=== PATIENT | male | born 1945 | race Caucasian/White ===

== ENCOUNTER 2024-03-28 10:05 | Observation (INO) ==
--- NOTE | 2024-02-29 10:33 | PAT Medication Instructions ---
Medication Instructions Date of Service February 29, 2024 Home Medications Medication Instructions Recorded walker #1 ea 02/16/24 ascorbic acid (vitamin C) 500 mg tablet (Vitamin C) 500 mg PO QAM aspirin 81 mg capsule 81 mg PO QAM cholecalciferol (vitamin D3) 25 mcg (1,000 unit) tablet (Vitamin D3) 25 mcg PO QAM fenofibrate micronized 134 mg capsule 134 mg PO QPM multivitamin 1 tab PO QAM vitamin E (dl, acetate) 180 mg (400 unit) capsule 180 mg PO QAM zinc 50 mg tablet 50 mg PO QAM ASK your prescriber and surgeon aspirin 81 mg capsule 81 mg PO QAM STOP taking 2 weeks before surgery (or as soon as possible if surgery is within 2 weeks) vitamin E (dl, acetate) 180 mg (400 unit) capsule 180 mg PO QAM STOP taking 48 hours before surgery fenofibrate micronized 134 mg capsule 134 mg PO QPM DO NOT take the morning of surgery ascorbic acid (vitamin C) 500 mg tablet (Vitamin C) 500 mg PO QAM cholecalciferol (vitamin D3) 25 mcg (1,000 unit) tablet (Vitamin D3) 25 mcg PO QAM multivitamin 1 tab PO QAM zinc 50 mg tablet 50 mg PO QAM Other Notes NOTHING TO EAT OR DRINK AFTER MIDNIGHT. If you have any questions please call us at [phone] or [phone] or [phone] or [phone]
--- NOTE | 2024-03-07 08:33 | Anesthesiology Consultation ---
Date of Service March 07, 2024 Assessment & Plan (1) Encounter for pre-operative examination: - will request CBC with diff, EKG and most recent PCP office note from PCP office, Dr. Alonso. - Outpatient joint assessment: Patient is currently scheduled for inpatient pathway. If re-evaluated and patient/surgeon requests outpatient pathway, patient is not ideal candidate for outpatient joint program from anesthesia standpoint. Chart Review Chart Review: Pending: Refer to Additional Notes / Consult section and Patient seen in Pre Admission Testing Teaching & Discussion Pre-Anesthesia Teaching/Discussion Notes: Instructed NPO after midnight before surgery, except medications with 15 cc of water. Medication instructions provided according to the PAT guidelines. History Surgery Operation Date: 03/28/24 12:30 Proposed Procedures p Left Total Knee Arthroplasty - Prabhjot Mane MD Height/Weight Height: 5 ft 8 in Weight: 70.7 kg Allergies Allergy/AdvReac Type Severity Reaction Status Date / Time No Known Allergies Allergy Verified 02/25/24 07:56 Medications Home Medications Medication Instructions Recorded Confirmed Last Taken walker #1 ea 02/16/24 Unknown ascorbic acid (vitamin C) 500 mg 500 mg PO QAM 02/25/24 02/25/24 Unknown tablet (Vitamin C) aspirin 81 mg capsule 81 mg PO QAM 02/25/24 02/25/24 Unknown cholecalciferol (vitamin D3) 25 25 mcg PO QAM 02/25/24 02/25/24 Unknown mcg (1,000 unit) tablet (Vitamin D3) fenofibrate micronized 134 mg 134 mg PO QPM 02/25/24 02/25/24 Unknown capsule multivitamin 1 tab PO QAM 02/25/24 02/25/24 Unknown vitamin E (dl, acetate) 180 mg 180 mg PO QAM 02/25/24 02/25/24 Unknown (400 unit) capsule zinc 50 mg tablet 50 mg PO QAM 02/25/24 02/25/24 Unknown Past Medical History Medical History CAD (coronary artery disease) Hx of myocardial infarction 04/2011 - heart catherization - no stents - [facility] - Discharged from cardiology - Follows PCP Patient denies h/o stroke, seizures, heart failure, DM, HTN, blood clots/DVTs or blood transfusions. Exercise / Class Metabolic Activity II 4-5 Yardwork/Stairs/Walk up hill (denies chest discomfort or shortness of breath with one flight of stairs) Past Surgical History Surgical History Hx of arthroscopy of left knee 2003 Hx of cardiac catheterization 04/[address] [facility] Hx of cataract surgery Bilateral Past Anesthesia History No Hx of Anesthesia Complications and No Family Hx of Anesthesia Complications History of PONV No Hx of PONV and No Hx of Motion Sickness Social History Smoking Status: Never smoker Do You Dip or Chew Tobacco: No Hx Alcohol Use: Yes Alcohol type: beer alcohol intake frequency: a few times a month Hx Substance Use: No substance use type: does not use Review of Systems Snoring, denies witnessed apneas. Patient denies chest pain, shortness of breath, dyspnea on exertion, reflux, fever, chills, cough, wheezing, or palpitations. Physical Exam Vital Signs Vitals BP 147/73 P 63 TEMP 97.9 SP02 97% on RA RESP 17 Physical Patient resting comfortably in chair in no acute distress, alert and oriented, responding appropriately throughout visit Full cervical extension range of motion without pain TMD 3.5 finger breadths Mallampati Score 2 Dentition: one removable bridge and one chipped tooth, denies loose teeth, caps/crowns, or implants Lungs: normal respiratory effort. Good air movement, clear throughout to auscultation, no adventitious breath sounds Cardiac: regular rate and rhythm, no murmurs noted Carotid arteries: negative bruit bilat Lab Results Anesthesia Preop Results Results Anesthesia Widget: PT 11.0 Seconds (9.0-12.0) 03/07/24 PTT 24 Seconds (21-31) 03/07/24 INR 1.0 (0.9-1.1) 03/07/24 Blood Type A Positive 03/07/24 Antibody Screen NEGATIVE 03/07/24 Testing Laboratory Results 03/03/24 WBC: H/H: PLATELETS: SODIUM: 139 POTASSIUM: 3.8 CHLORIDE: 103 CO2: 27 BUN: 24 CREATININE: 1 GLUCOSE: 121 AST: 24 ALT: 21 Alk phos: 27 Chest X-Ray Date: 03/07/24 No acute chest disease.
--- NOTE | 2024-03-25 08:46 | History & Physical Report ---
Date of Service March 25, 2024 Assessment & Plan (1) Left knee DJD: 78-year-old gentleman DJD. He is failed conservative measures. Is affecting his quality life need that like to have his left knee replaced.. He has been seen by his primary care. He has been cleared for surgery. Will plan on DVT prophylaxis including thigh-high teds, SCDs, baby aspirin twice a day. He is planned to be discharged to home using [facility] home health program. (2) CAD (coronary artery disease): (3) Hx of myocardial infarction: (4) Hx of arthroscopy of left knee: History of Present Illness Chief Complaint: . Left knee pain. Primary Care Provider: NO PCP . The patient is a 78-year-old gentleman from [facility] who presents for surgical treatment of his left knee. He has a long history of left knee pain discomfort that is gradually gotten worse over time. He does have a history of a knee arthroscopy done by Dr. Tsang about 20 years ago. Over the past 3 to 5 years he developed increased pain discomfort in his knee. Pain is mostly medial but some global pain. He has developed stiffness. Days tried multiple different interventions without significant relief. He would like to have his left knee replaced. Of note, the patient has a history of an SC back in 2010 but no residual symptoms and cleared for surgery. Allergies Allergy/AdvReac Type Severity Reaction Status Date / Time No Known Allergies Allergy Verified 02/25/24 07:56 Home Medications Medication Instructions Recorded Confirmed Type walker #1 ea 02/16/24 Rx ascorbic acid (vitamin C) 500 mg 500 mg PO QAM 02/25/24 02/25/24 History tablet (Vitamin C) aspirin 81 mg capsule 81 mg PO QAM 02/25/24 02/25/24 History cholecalciferol (vitamin D3) 25 25 mcg PO QAM 02/25/24 02/25/24 History mcg (1,000 unit) tablet (Vitamin D3) fenofibrate micronized 134 mg 134 mg PO QPM 02/25/24 02/25/24 History capsule multivitamin 1 tab PO QAM 02/25/24 02/25/24 History vitamin E (dl, acetate) 180 mg 180 mg PO QAM 02/25/24 02/25/24 History (400 unit) capsule zinc 50 mg tablet 50 mg PO QAM 02/25/24 02/25/24 History Past Med/Surg History Problem List Encounter for pre-operative examination Left knee DJD Medical History CAD (coronary artery disease) Hx of myocardial infarction 04/2011 - heart catherization - no stents - [facility] - Discharged from cardiology - Follows PCP Surgical History Hx of arthroscopy of left knee 2003 Hx of cataract surgery Bilateral Hx of cardiac catheterization 04/2011 No stents - [facility] Social History Smoking Status: Never smoker Second Hand Exposure: No; Do You Dip or Chew Tobacco: No; Hx Alcohol Use: Yes Alcohol type: beer Hx Substance Use: No Preferred Language: Mohawk Communication Ability: Effective Advertising Sales Consultant Required: No Beliefs That Will Affect Care: None Current Living Situation: Spouse Feels Safe at Home: Yes Assistive Devices: Other Review of Systems All systems reviewed & are unremarkable except as noted in HPI & below. Physical Exam . Physical examination was a pleasant and healthy-appearing male. Looks to be in excellent health. Examination of the left knee reveals patient ambulates independently. He is got varus alignment to his knee. Is got bony hypertrophy medially. He has about a 10 degree flexion contracture and bends to 120. No particular pain with hip motion. He is neurovascularly intact. Constitutional WD/WN, vitals as above Respiratory normal respiratory effort, lungs clear to auscultation Cardiovascular RRR, no murmur, no edema Gastrointestinal (Abdomen) normal bowel sounds, soft, nontender, no hepatosplenomegaly Results & Data Results & Data Laboratory Results . Diagnostic Findings . X-rays of the left knee were reviewed. That shows significant tricompartment disease. He is got complete loss of his medial joint space. He is got chondrocalcinosis. PG Care Time/CCT Total # of Minutes Spent Total Time Spent with Patient: Total time spent is greater than 50% in coordination of care (as documented) at patient's floor/unit and/or counseling patient: Coding Level of Care Code None Diagnoses Left knee DJD M17.12 CAD (coronary artery disease) I25.10 Hx of myocardial infarction I25.2 Hx of arthroscopy of left knee Z98.890
[~2024-03-28 10:05] MED LIST: ROPIVACAINE 0.5% 5 MG/ML 30 ML VIAL ONE
--- NOTE | 2024-03-28 10:19 | History & Physical Bridge Note ---
Date of Service March 28, 2024 History & Physical Bridge Note I have examined the patient, reviewed the History & Physical and in the interval since the performance of the History & Physical I have noted the following changes of clinical significance: no changes noted
[2024-03-28] MEDS: ACETAMINOPHEN 500 MG TAB PO SCH ×2 (10:45→21:29)
[2024-03-28] MEDS: LR 500ML BOLUS, THEN 15ML/HR IV SCH (10:45)
[2024-03-28] MEDS: CeleBREX 200 MG CAP PO SCH (10:46)
[2024-03-28] MEDS: LR 60ML/HR IV SCH (10:46)
[2024-03-28] MEDS: FAMOTIDINE 20 MG TAB PO SCH (10:46)
[2024-03-28] MEDS: dexAMETHasone**PF** 10 MG/ML VIAL IV SCH (10:46)
[2024-03-28] MEDS: METOCLOPRAMIDE HCL 10 MG TABLET PO SCH (10:46)
[2024-03-28] MEDS ORDERED: fentaNYL citrate PF 100 MCG/2 ML VIAL ONE (11:34)
[2024-03-28] MEDS ORDERED: PROPOFOL IV EMULSION 10 MG/ML 20 ML VIAL IV ONE (11:34)
[2024-03-28] MEDS ORDERED: MIDAZOLAM HCL 1 MG/ML 2ML VIAL ONE (11:34)
[2024-03-28] MEDS ORDERED: HYDROmorphone INJ 1 MG/ML SYRINGE IV PRN (11:54)
[2024-03-28] MEDS ORDERED: ATROPINE SULFATE 0.1 MG/ML 10ML SYR IV PRN (11:54)
[2024-03-28] MEDS ORDERED: ONDANSETRON INJ 2 MG/ML 2 ML VIAL IV PRN ×2 (11:54→15:03)
[2024-03-28] MEDS ORDERED: fentaNYL citrate PF 100 MCG/2 ML VIAL IV PRN (11:54)
[2024-03-28] MEDS ORDERED: ePHEDrine sulfate 50 MG/ML AMP IV PRN (11:54)
[2024-03-28] MEDS: ceFAZolin 2000MG 2,000 MG/15 ML SYR IV SCH (12:29)
[2024-03-28] MEDS ORDERED: ePHEDrine sulfate 50 MG/5 ML SYR ONE (12:49)
[2024-03-28] MEDS: ORTHO JOINT ANESTHETIC ONE (13:09)
[2024-03-28] MEDS: ROPIV 0.5% 246mg, Ketorolac 30mg, EPINEPHrine 0.5mg in NSS INFIL SCH (13:09)
[2024-03-28] MEDS: TRANEXAMIC ACID 1,000 MG **IV Intra-op IV SCH (13:14)
[2024-03-28] MEDS ORDERED: ONDANSETRON INJ 2 MG/ML 2 ML VIAL ONE (13:43)
--- NOTE | 2024-03-28 14:08 | Operative Report ---
PG Post Operative Report Pre & Post Diagnosis Operation Date: 03/28/24 12:30 Pre-Op Diagnosis: Left Knee Osteoarthritis Post-Op Diagnosis: Left Knee Osteoarthritis I identified the patient and participated in the time-out.: Yes Procedure Operation Date: 03/28/24 12:30 Actual Procedures p Left Total Knee Arthroplasty(Left) - Prabhjot Mane MD Surgeon Prabhjot Mane MD Social Services Counselor MATT Higginbotham Estimated Blood Loss 50 Findings Consistent with Post-Op Diagnosis Operative findings were advanced left knee DJD. He had extensive grade 4 [id number] disease the entire medial compartment. He had a varus deformity to his knee and a slight flexion contracture. He had a chronic ACL deficiency. Specimens Left knee sent for pathology. Anesthesia Type Spinal MAC Complications none Disposition Accompanied Patient To Recovery: No Indications Patient 78-year-old gentleman with a long history of left knee pain discomfort and gradual progressive deformity. He has been through extensive conservative treatment the past which became less successful. X-rays show advanced left knee DJD. He would like proceed with total knee arthroplasty. Description of Procedure Operative implants consist of: 1. Biomet Vanguard size 67.5 left posterior stabilized femoral component. 2. Biomet size 75 tibial tray. 3. 10 mm posterior stabilized polyethylene insert. 4. 34 x 8 and half all poly patella. The patient was taken the op room, identified, placed on the operating table in the supine position. All contact areas were appropriately padded. IV antibiotics right by anesthesia team. A spinal anesthetic and adductor canal block had been provided in the holding area. A left thigh turn was then placed. Left lower extremity was then prepped and draped in usual sterile fashion. The left leg was elevated exsanguinated with use of an Esmarch and turn was placed at 3 mmHg. An anterior approach left knee was then performed to longitudinal incision centered over the patella. Sharp dissection was Through subcutaneous tissue down the extensor mechanism. A medial parapatellar arthrotomy incision was made. Some subperiosteal dissection was carried out medially. The fat pad resected from Neath patella tendon. The lateral patellofemoral ligament was released. Patella subluxated laterally. The knee was flexed. The osteophytes taken off distal femur. His ACL was absent. The PCL was released from the distal femur the tibia subluxated anteriorly. The external tibial alignment jig was then placed on the anterior face the tibia and adjusted 14 mm medially. Proximal tibial cut was made essentially flush with the most deficient aspect of the posterior medial tibial plateau. He had quite a bit of bone wear medially. Some osteophytes taken off medially. The tibia sized to a size 75. Attention drawn the femur. The distal femur examined the sharp drill. Intramedullary canal was suction. A left 6 degree valgus cutting guide was placed. The distal femoral cutting block was pinned in place. Distal femoral cut was made to take an additional 3 mm of bone off distal femur. The femur was then sized to a size 67.5. The AP cutting block was pinned parallel to the epicondylar axis which was 5 degrees of external rotation. The anterior cut, anterior chamfer, posterior cut, posterior chamfer cuts were made. The box cutting guide was placed and just slight lateral box cut was made. The knee was flexed. The remnants of the medial and lateral menisci were excised. The osteophytes taken off the posterior aspect the femur. A trial femoral component was placed. The tibial tray was pinned Adina external rotation and the drill and stem punch used to create defect in proximal tibia for the tibial tray. Knee was then trialed the 10 mm insert fit most appropriately. Attention drawn the patella. The patella was cleaned of all soft tissues. Patella thickness measured 23 mm in thickness was cut down to 15. Was sized to a size 34 patella. The lug holes were drilled for 34 patella. The lateral osteophytes removed. The patella button was placed. Knee was taken through range of motion patella tracked nicely with no thumbs test. Attention drawn to place the permanent components. All trial components were removed. Bone plug was placed into this femur limit blood loss. Double batch Pal[place]os G cement was mixed. A Biomet Vanguard size 67.5 left posterior Byce femoral component, size 75 tibial tray, a 10 mm posterior Byce polyethylene insert, and a 34 x 8 and half all poly patella then cemented in place. The knee was brought out into full extension till cement hardened. Final cement check was then performed. Pericapsular tissues were injected 100 cc of Ortho mix. Patient did receive 1 g tranexamic acid. The estefany rniquet was then let down for final turn time 51 minutes. Hemostasis assured use electrocautery. Extensor Meclomen closed with combination 1 PDS suture Vicryl suture in [id number] fashion. The extensor mechanism checked found to be intact in the subcutaneous tissues then closed with 2 Dexon suture in a buried interrupted fashion skin was closed skin michael. Leg was then cleaned and dried and sterile dressed with Xeroform, 4 fours, sterile cast padding, Zak bandage were applied. Patient then transferred to the recovery in stable condition. Patient tolerated procedure well and there are no complications. Juan Antonio Higginbotham, my physician assistant general manager, was present for the entire procedure. His assistance was essential and required for appropriate patient positioning, prepping and draping, surgical exposure, performing the technical details of the operation, placement the implants, closure of the wound, and placement of the sterile bandage. I attest to the content of the Intraoperative Record and any orders documented therein. Any exceptions are noted below.
--- NOTE | 2024-03-28 15:02 | Anesthesiology Progress Note ---
Date of Service March 28, 2024 Anesthesia Post Procedure Vital Signs Vital Signs: Temp Pulse Pulse Resp BP Pulse Ox O2 Del Method 03/28/24 14:40 37.2 C 87 15 118/60 97 Room Air 03/28/24 14:30 92 H 20 115/59 L 97 Room Air 03/28/24 14:20 87 16 124/65 97 Room Air 03/28/24 14:10 36.4 C L 90 21 103/53 L 99 Oxymask 03/28/24 11:11 36.5 C 72 20 136/83 94 Room Air O2 Flow Rate 03/28/24 14:40 03/28/24 14:30 03/28/24 14:20 03/28/24 14:10 5 03/28/24 11:11 Transfer of Care Handoff Completed per policy Notes Mental Status: alert / awake / arousable and participated in evaluation Nausea / Vomiting: adequately controlled Pain: adequately controlled Airway Patency, RR, SpO2: stable & adequate BP & HR: stable & adequate Hydration State: stable & adequate Anesthetic Complications: no major complications apparent and Pt Satisfied with anesthetic care
[2024-03-28] MEDS ORDERED: HYDROmorphone INJ 0.5 MG/0.5 ML SYR IV PRN (15:03)
[2024-03-28] MEDS ORDERED: NALOXONE HCL 0.4 MG/1 ML VIAL/CARP IV PRN (15:03)
[2024-03-28] MEDS ORDERED: ALUMINUM/MAGNESIUM SUSP 30 ML UDC PO PRN (15:03)
[2024-03-28] MEDS ORDERED: oxyCODONE HCL IR 5 MG TAB (IMMEDIATE RELEASE) PO PRN (15:03)
[2024-03-28] MEDS ORDERED: MAGNESIUM HYDROXIDE SUSP 30 ML UDC PO PRN (15:03)
[2024-03-28] MEDS ORDERED: bisacodyL 10 MG SUPP PR PRN (15:03)
[2024-03-28] MEDS ORDERED: METOCLOPRAMIDE HCL INJ 5 MG/ML 2 ML VIAL IV PRN (15:03)
[2024-03-28] MEDS: SODIUM CHLORIDE 0.9% 1,000 ML IV SCH (15:54)
[2024-03-28] MEDS: KETOROLAC TROMETHAMINE 15 MG/ML VIAL IV SCH (15:55)
--- NOTE | 2024-03-28 16:46 | XRay Report ---
XR knee LT 1 or 2V routine CLINICAL HISTORY: Postoperative evaluation. COMPARISON: Left knee radiographs February 14, 2024. FINDINGS: Alignment of the total left knee arthroplasty is anatomic. There is no periprosthetic frac ture or unexpected radiopaque foreign body. There are skin michael. IMPRESSION: Expected findings following total left knee arthroplasty. ACT 112: Negative or not required by law. Electronically signed by: Sean Sanchez M.D. 03/28/2024 4:44 PM
[2024-03-28] MEDS ORDERED: SENNA 8.6 MG TAB PO SCH (21:00)
[2024-03-28] MEDS: FENOFIBRATE NANOCRYSTALLIZED 145 MG TABLET PO SCH (21:29)
[2024-03-28] MEDS: ASPIRIN 81 MG ECTAB PO SCH (21:29)
[2024-03-28] MEDS: TRANEXAMIC ACID / 0.7% NACL 1,000 MG/100 ML BAG IV SCH (21:30)
[2024-03-28] MEDS: ceFAZolin 1000MG 1,000 MG/7.5 ML SYR IV SCH (21:30)
[2024-03-28] MEDS: DOCUSATE SODIUM 100 MG CAP PO SCH (21:31)
[2024-03-28] MEDS: SENNA 8.6 MG TAB PO SCH (21:31)
[2024-03-29 03:42] VITALS: RESP 16
[2024-03-29 06:11] LABS: Hematocrit (blood only) 34.6 % (42.0-52.0); Hemoglobin 11.9 g/dl (14.0-18.0); Mean Corpuscular Hemoglobin 32.4 pg (25.0-34.0); Mean Corpuscular Hgb Conc 34.4 g/dL (32.0-36.0); Mean Corpuscular Volume 94.3 fL (80.0-100.0); Mean Platelet Volume 10.6 fL (9.4-12.4); Platelet Count 204 K/uL (130-400); RDW Coefficient of Variation 12.5 % (11.5-14.5); RDW Standard Deviation 43.3 fL (36.4-46.3); Red Blood Count 3.67 M/uL (4.70-6.10); White Blood Count 16.45 K/ul (4.8-10.8)
[2024-03-29 06:29] LABS: BUN Creatinine Ratio 19.6 (10-20); Calcium 8.9 mg/dl (8.6-10.3); Creatinine Clr Calc Pharmacy 43.4 ml/min; Est GFR (African American) 56.8 ml/min; Potassium 4.2 mmol/L (3.5-5.1)
--- NOTE | 2024-03-29 06:46 | Orthopedic Progress Note ---
Date of Service March 29, 2024 Assessment & Plan (1) Status post total left knee replacement: Pain controlled PT/OT wbat d/c planning: home with home health today after PT. Dressing change tomorrow dvt prophylaxis: teds, scd's, aspirin Subjective . 78 year old patient POD #1 from left tka. Doing well. No pain. No chest pain or shortness of breath. Has been up walking. Review of Systems All systems reviewed & are unremarkable except as noted in HPI & below. Physical Exam . alert and oriented. NAD VSS hgb 11.9 Left knee: Dressing clean, dry, intact. NVI. Able to do SLR, DF/PF Results & Data Results & Data Laboratory Results . Diagnostic Findings . PG Care Time/CCT Total # of Minutes Spent Total Time Spent with Patient: Total time spent is greater than 50% in coordination of care (as documented) at patient's floor/unit and/or counseling patient: Coding Level of Care Code 44104 Post Operative Follow-Up Diagnoses Status post total left knee replacement Z96.652
[2024-03-29 07:41] VITALS: BP 152/76; PULSE 63; TEMP 98.8; O2SAT 98
[2024-03-29] MEDS: dexAMETHasone 10 MG in SYRINGE 0 ML IV SCH (07:43)
[2024-03-29] MEDS: CHOLECALCIFEROL 25 MCG (1000 UNITS) TAB PO SCH (08:21)
[2024-03-29] MEDS: ASCORBIC ACID 500 MG TAB PO SCH (08:21)
[2024-03-29] MEDS: MULTIVITAMIN TAB PO SCH (08:22)
[2024-03-29] MEDS: ZINC SULFATE 220 MG CAPSULE PO SCH (08:22)
[2024-03-29] MEDS: TAMSULOSIN HCL 0.4 MG CAP PO SCH (08:24)
[2024-03-29] MEDS: TOCOPHERYL, DL-ALPHA 400 UNITS 180 MG CAP PO SCH (08:24)
[2024-03-29] MEDS ORDERED: MULTIVITAMIN TAB PO SCH (09:00)
--- NOTE | 2024-03-31 06:34 | Discharge Summary ---
Date of Service March 31, 2024 Admission HPI (Per Admitting) . The patient is a 78-year-old gentleman from [facility] who presents for surgical treatment of his left knee. He has a long history of left knee pain discomfort that is gradually gotten worse over time. He does have a history of a knee arthroscopy done by Dr. Tsang about 20 years ago. Over the past 3 to 5 years he developed increased pain discomfort in his knee. Pain is mostly medial but some global pain. He has developed stiffness. Days tried multiple different interventions without significant relief. He would like to have his left knee replaced. Of note, the patient has a history of an IN back in 2010 but no residual symptom s and cleared for surgery. Admission Exam (Per Admitting) . Physical examination was a pleasant and healthy-appearing male. Looks to be in excellent health. Examination of the left knee reveals patient ambulates independently. He is got varus alignment to his knee. Is got bony hypertrophy medially. He has about a 10 degree flexion contracture and bends to 120. No particular pain with hip motion. He is neurovascularly intact. Principal Diagnosis Same as "Discharge Diagnosis" noted below under Discharge Instructions. Discharge Exam . alert and oriented. NAD VSS hgb 11.9 Left knee: Dressing clean, dry, intact. NVI. Able to do SLR, DF/PF Discharge Data Procedures Performed Operation Date: 03/28/24 12:30 Actual Procedures p Left Total Knee Arthroplasty(Left) - Prabhjot Mane MD Ordered Studies 03/28/24 05:00 US - OR guided needle placemen Routine Hospital Course (1) Status post total left knee replacement: This is a 78 year old patient admitted on 03/28/24 and underwent total knee arthroplasty. He tolerated the procedure well and there were no complications. Transferred to the PACU post op and later to the orthopedic floor for further care. He was given ancef for antibiotic prophylaxis. He was also given DALLIN stockings, SCDs, and aspirin for DVT prophylaxis. Hemoglobin, hematocrit, and vital signs were monitored during his hospital stay and remained stable. Did not require any blood transfusions. There were no complications during his hospital stay. By post op day #1 the patient was tolerating a regular diet, pain was reasonably controlled with oral pain medicine, and he was participating in physical therapy. On post op day #1 the patient was discharged home and set up with home health care. He was given printed discharge instructions including prescriptions for extra strength tylenol, aspirin, cefadroxil, ketorolac, zofran, oxycodone, senokot, and flomax. Continue physical therapy, weight bearing as tolerated. Continue DALLIN stockings. Follow up approximately 2 weeks post op or sooner if there are problems or concerns. PG Care Time/CCT Total # of Minutes Spent Total Time Spent with Patient: Total time spent is greater than 50% in coordination of care (as documented) at patient's floor/unit and/or counseling patient: Discharge Plan Discharge Items Patient Disposition: Home - Home Health Services Reason For Visit: Left Knee Osteoarthritis Discharge Diagnosis: Left Knee REplacement Activity: Per Instructions section Weightbearing: Full weightbearing Non-emergency contact: Surgeon Call non-emergency contact if: you have any medication questions Follow-up/Referrals: PCP,NO [Physician] - Diet: Regular Addtl Attending Provider Instructions: ACTIVITY RECOMMENDATIONS: Physical Therapy: * You will go to physical therapy three times each week for four to six weeks after your surgery in order to regain your knee range of motion and to retrain your knee to work properly. * It is just as important to make sure you are getting your knee perfectly straight as it is to regain your knee bend. * Taking a pain pill an hour before therapy can help you have a more productive and comfortable therapy session. Home Exercise: * You were shown a series of exercises (heel props, heel slides, etc.) in the hospital. Do these exercises three to four times each day including the exercises you were shown in physical therapy. Walking: * Get up and walk several times each day. For the first four weeks, try not to stand or walk for more than one hour at a time. If you do stand or walk for more than one hour, you will not hurt anything, but your knee and leg will likely swell. * As you feel comfortable, you may change from the walker or crutches to a cane and then to independent walking. MEDICATIONS: New Medicine: * You will likely be taking one or more of these medications: 1. Oxycodone - A quick and shorter-acting pain medication. Take one to two tablets every six hours to lessen your pain. 2. Aspirin - Thins your blood to lessen the chance of forming a blood clot. * The most common side effects of pain medicine and iron are nausea and constipation. If nausea or constipation is too much of a problem or if you have any questions about your new medicines or doses, call [facility] at . We will try to help you manage these issues. "VERY IMPORTANT TO READ AND REVIEW" Pain: * The immediate post-operative period after knee replacement surgery is often quite painful. * You are given a prescription for pain medicine. You should take it, as directed, when you need it, especially before physical therapy and before going to bed. Pain that interferes with sleep is very common and can last several months. * You will likely need pain medicine for the first four to six weeks. It will not stop all of the pain. The pain will lessen and as you feel better, you may change to milder pain medicine such as Tylenol. * The most common side effects of pain medicine are nausea and constipation, so don't take more than you need. SPECIAL CARE INSTRUCTIONS: TEDs/Elastic Stockings: * The white elastic stockings help limit swelling and prevent blood clots from forming in your legs. The more you wear them, the more they work. * Wear them for six weeks after knee replacement surgery and four weeks after partial knee replacement. Incision Site Care: * Remove dressing postoperative day 2 and then shower. Keep direct shower pressure off the incision site. * After showering, cover michael with dry gauze and change daily or more frequently if the dressing is getting saturated with drainage. * Use the DALLIN stockings to hold dressing in place. DO NOT apply tape on the skin. * May completely stop using bandage if wound is dry and no drainage * [place] are removed between 2 and 3 weeks post-op. If your follow-up appointment is made before 2 weeks, please have your appointment re- scheduled. It is too early to remove the michael. Prevention of Infection: * Take antibiotics one hour before any dental cleaning, dental work, urological procedure, gastrointestinal procedure or any invasive surgery in order to prevent your new joint from getting infected. * You may get the antibiotics from the doctor performing the procedure or you may call our office at [phone] before and we will call in a prescription to the pharmacy of your choice. Things to Watch For: * Drainage from the incision site that occurs more than one week after your surgery. * Severely increased knee/leg pain or swelling. * Increased redness at the incision site. * Fever above 102 degrees Fahrenheit. * Unusual chest pain or shortness of breath. * Unusual pain or burning with urination. Call [facility] at [phone] with any of the above problems or if you have any questions about your medicines or recovery. FOLLOW UP VISIT: Make an appointment to see your doctor for approximately two weeks after surgery for a progress check and staple removal by calling the office at [phone]. Pending Studies at Discharge: No Stand-Alone Forms: My [facility] DEONTICS, Smoking Cessation Medications and DC Order Prescriptions: Continued (DME) walker Misc See Rx Instructions .MEDSUPPLY Qty: 1 0RF Rx Instructions: As directed oxycodone 5 mg tablet 5 - 10 mg PO Q6 PRN (Reason: pain) Qty: 40 0RF Rx Instructions: Take as needed for pain ondansetron 4 mg tablet,disintegrating 4 mg PO Q8 PRN (Reason: nausea) Qty: 20 1RF Rx Instructions: Take as needed for nausea ketorolac 10 mg tablet 10 mg PO TID 5 Days Qty: 15 0RF Rx Instructions: Take 3 times per day with food for 5 days to lessen pain and swelling. sennosides [Senokot] 8.6 mg tablet 8.6 mg PO BID 14 Days Qty: 28 0RF Rx Instructions: Take two times a day to prevent/treat constipation acetaminophen [Tylenol Extra Strength] 500 mg tablet 1,000 mg PO TID 30 Days Qty: 180 0RF Rx Instructions: Take 3 times per day to lessen pain. aspirin [Tommy Low Dose Aspirin] 81 mg tablet,delayed release (DR/EC) 81 mg PO BID 45 Days Qty: 90 0RF Rx Instructions: Take to prevent blood clots. tamsulosin [Flomax] 0.4 mg capsule 0.4 mg PO DAILY Qty: 7 0RF Rx Instructions: Begin night BEFORE surgery to prevent urinary retention cefadroxil 500 mg capsule 500 mg PO BID 7 Days Qty: 14 0RF Rx Instructions: Take 1 cap twice a day to prevent infection multivitamin Tablet 1 tab PO QAM fenofibrate micronized 134 mg Capsule 134 mg PO QPM ascorbic acid (vitamin C) [Vitamin C] 500 mg Tablet 500 mg PO QAM zinc 50 mg Tablet 50 mg PO QAM cholecalciferol (vitamin D3) [Vitamin D3] 25 mcg (1,000 unit) Tablet 25 mcg PO QAM vitamin E (dl, acetate) 180 mg (400 unit) Capsule 180 mg PO QAM aspirin 81 mg Capsule 81 mg PO QAM Admission Data Admit Date/Time: 03/28/24 14:05 Attending Provider: Prabhjot Mane Admit Provider: Prabhjot Mane Primary Care Provider: Lester Mosley Other Providers: [facility],Home Health Other Interventions: Discharge Summary Assessment (RN) Last Done: 03/29/24 10:14
== END 2024-03-29 10:48 | disposition home health service (06) ==
LOC: ASU 10:05 → 3E 10:05
DX: M17.12 Unilateral primary osteoarthritis, left knee; Z79.899 Other long term (current) drug therapy; I25.10 Atherosclerotic heart disease of native coronary artery without angina pectoris; I25.2 Old myocardial infarction; Z79.82 Long term (current) use of aspirin